=== PATIENT | female | born 1960 | race African-American/Black ===

== ENCOUNTER 2022-01-19 17:29 | Emergency (ER) | payer OTHER ==
[~2022-01-19] VITALS: Ht 172.7 cm; Wt 69.0 kg
[2022-01-19 17:41] VITALS: BP 118/79
== END 2022-01-19 19:10 | disposition left against medical advice (07) ==
LOC: ER 17:29
DX: Z53.21 Procedure and treatment not carried out due to patient leaving prior to being seen by health care provider (principal)
CPT/HCPCS: 93005